=== PATIENT | male | born 2000 | race Caucasian/White ===

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

== ENCOUNTER 2019-03-15 20:55 | Emergency (ER) | payer OTHER, SELFPAY ==
[~2019-03-15] VITALS: Ht 170.2 cm; Wt 160.0 kg
[2019-03-15] MEDS ORDERED: PERCOCET 5MG/325MG TAB PO ONE (21:30)
--- NOTE | 2019-03-15 22:15 | REPVR ---
EXAM: CT Lumbar Spine Without Contrast EXAM DATE/TIME: 03/15/2019 9:33 PM CLINICAL HISTORY: 18 years old, male; Injury or trauma; Fall; Initial encounter; Blunt trauma (contusions or hematomas); Additional info: Fell/pain TECHNIQUE: Imaging protocol: Axial computed tomography images of the lumbar spine without intravenous contrast. Coronal and sagittal reformatted images were created and reviewed. Radiation optimization: All CT scans at this facility use at least one of these dose optimization techniques: automated exposure control; mA and/or kV adjustment per patient size (includes targeted exams where dose is matched to clinical indication); or iterative reconstruction. COMPARISON: No relevant prior studies available. FINDINGS: No segmental lumbar vertebral malalignment. Vertebral body height and morphology is maintained. No acute fracture or destructive process. Intervertebral disc height is maintained for age. Mild disc bulge lumbosacral junction. Broad-based No dilatation of the imaged distal abdominal aorta. No significant abnormality of the imaged retroperitoneum. IMPRESSION: No fracture or other acute abnormality involving the lumbar spine. Mild broad-based disc bulge at the lumbosacral junction Electronically signed by: Praveen Paredes On 03/15/2019 22:14:16 PM
--- NOTE | 2019-03-15 22:16 | REPVR ---
EXAM: CT Thoracic Spine Without Contrast EXAM DATE/TIME: 03/15/2019 9:33 PM CLINICAL HISTORY: 18 years old, male; Injury or trauma; Fall; Initial encounter; Blunt trauma (contusions or hematomas); Additional info: Fell/pain TECHNIQUE: Imaging protocol: Axial computed tomography images of the thoracic spine without intravenous contrast. Coronal and sagittal reformatted images were created and reviewed. Radiation optimization: All CT scans at this facility use at least one of these dose optimization techniques: automated exposure control; mA and/or kV adjustment per patient size (includes targeted exams where dose is matched to clinical indication); or iterative reconstruction. COMPARISON: No relevant prior studies available. FINDINGS: No segmental malalignment of the vertebral bodies. Vertebral body height is maintained. No fracture or destructive process. Intervertebral disc height is maintained, appropriate for age. No paraspinous soft tissue mass or focal soft tissue edema. IMPRESSION: No fracture or other acute abnormality involving the thoracic spine. Electronically signed by: Praveen Paredes On 03/15/2019 22:15:38 PM
[2019-03-15] MEDS ORDERED: IBUP80TA PO (22:37)
[2019-03-15] MEDS ORDERED: CYCL5TAB PO (22:37)
[2019-03-15 22:48] VITALS: BP 132/77
--- NOTE | 2019-03-16 08:42 | REP ---
REASON FOR EXAM: Pain after trauma. PRIORS: None. FINDINGS: No acute fracture or destructive osseous lesion. Electronically Signed by Ray Manzo DO 03/16/2019 08:45 A
--- NOTE | 2019-03-16 08:45 | REP ---
Pain after trauma. PRIORS: None. FINDINGS: Five views of the right and left ribs show no acute fracture or destructive osseous lesion. IMPRESSION: Negative ribs series. Electronically Signed by Ray Manzo DO 03/16/2019 08:48 A
--- NOTE | 2019-03-16 08:46 | REP ---
Pain after trauma. PRIORS: None. FINDINGS: No acute fracture or destructive osseous lesion. Electronically Signed by Ray Manzo DO 03/16/2019 08:48 A
--- NOTE | 2019-03-16 08:48 | REP ---
AP PELVIS AND RIGHT HIP: AP PELVIS: A single AP view of the pelvis was performed. The hip joint spaces are symmetric and relatively well maintained. There is no acute fracture or destructive osseous lesion. RIGHT HIP: The hip joint space is symmetric and relatively well maintained. There is no acute or destructive osseous lesion. Electronically Signed by Ray Manzo DO 03/16/2019 08:53 A
== END 2019-03-15 22:55 | disposition home or self-care (01) ==
LOC: M ED 20:55
DX: S39.012A Strain of muscle, fascia and tendon of lower back, initial encounter (principal); S76.011A Strain of muscle, fascia and tendon of right hip, initial encounter; S50.312A Abrasion of left elbow, initial encounter; S20.212A Contusion of left front wall of thorax, initial encounter; V00.138A Other skateboard accident, initial encounter; Y92.410 Unspecified street and highway as the place of occurrence of the external cause; Y93.51 Activity, roller skating (inline) and skateboarding; Y99.9 Unspecified external cause status; J45.909 Unspecified asthma, uncomplicated; F41.9 Anxiety disorder, unspecified; F32.9 Major depressive disorder, single episode, unspecified; Z72.0 Tobacco use; F12.10 Cannabis abuse, uncomplicated; Z88.5 Allergy status to narcotic agent

== ENCOUNTER 2019-07-02 16:28 | Emergency (ER) | payer SELFPAY ==
[~2019-07-02] VITALS: Ht 170.2 cm; Wt 70.5 kg
[2019-07-02 16:28] VITALS: BP 131/77
[~2019-07-02 16:28] MED LIST changes: +CYCL5TAB PO; +IBUP80TA PO; +TRAZ1TAB10 PO; -TRAZO50TA PO
== END 2019-07-02 19:40 | disposition left against medical advice (07) ==
LOC: M ED 16:28
DX: Z53.21 Procedure and treatment not carried out due to patient leaving prior to being seen by health care provider (principal)

== ENCOUNTER 2020-01-30 18:39 | Emergency (ER) | payer SELFPAY ==
[~2020-01-30] VITALS: Ht 170.2 cm; Wt 67.0 kg
[~2020-01-30 18:39] MED LIST changes: -AZIT500T2 PO; +AZIT500T5 PO
[2020-01-30 18:40] VITALS: BP 134/66
[2020-01-30] MEDS ORDERED: NS 1,000 ML IV ONE (19:00)
[2020-01-30 19:32] LABS: BASO # 0.1 10^3/uL (0.0-0.2); BASO % 0.7 % (0.0-1.0); EOS % 0.1 % (0.0-3.0); HEMATOCRIT 46.4 % (42.0-52.0); HEMOGLOBIN 16.2 g/dl (13.5-17.5); LYMPH # 2.7 10^3/uL (1.5-5.0); LYMPH % 32.1 % (24.0-44.0); MEAN CORPUSCULAR HEMOGLOBIN 30.7 pg (27.0-33.0); MEAN CORPUSCULAR HGB CONC 34.9 g/dl (32.0-36.5); MONO # 0.9 10^3/uL (0.0-0.8); MONO % 10.5 % (0.0-5.0); NEUTROPHILS # 4.8 10^3/uL (1.5-8.5); NEUTROPHILS % 56.6 % (36.0-66.0); PLATELET COUNT, AUTOMATED 359 10^3/uL (150-450); RED BLOOD COUNT 5.27 10^6/uL (4.30-6.10); WHITE BLOOD COUNT 8.5 10^3/uL (4.0-10.0)
[2020-01-30] MEDS ORDERED: ISOVUE-370 76% 100ML VIAL (Q9967) As Ordered ONE (19:32)
--- NOTE | 2020-01-30 19:50 | REPVR ---
PROCEDURE INFORMATION: Exam: CT Abdomen And Pelvis With Contrast Exam date and time: 01/30/2020 7:37 PM Age: 19 years old Clinical indication: Abdominal pain; Generalized; Additional info: Lower abdominal pain; R/O appy TECHNIQUE: Imaging protocol: Computed tomography of the abdomen and pelvis with intravenous contrast. Axial, coronal and sagittal reformatted images were created and reviewed. Radiation optimization: All CT scans at this facility use at least one of these dose optimization techniques: automated exposure control; mA and/or kV adjustment per patient size (includes targeted exams where dose is matched to clinical indication); or iterative reconstruction. Contrast material: ISOVUE 370; Contrast volume: 100 ml; Contrast route: IV; COMPARISON: CT ABD/PEL W/IV ORAL CONTRAS 03/20/2017 4:07 AM FINDINGS: Liver: Unremarkable. Gallbladder and bile ducts: No radiodense gallstones. No biliary ductal dilatation. Pancreas: Unremarkable. Spleen: Unremarkable. Adrenals: Unremarkable. Kidneys and ureters: No mass. No radiodense calculi. No hydronephrosis. Stomach and bowel: No bowel wall thickening. No obstruction. No pneumatosis. Appendix: Normal. Intraperitoneal space: No free fluid. No organized fluid collection. No free air. Vasculature: Unremarkable. No aneurysm. Lymph nodes: No pathologically enlarged lymph nodes. Bladder: Mild circumferential urinary bladder wall thickening, likely secondary to underdistention. Reproductive: Unremarkable. Bones/joints: No acute osseous abnormality. Soft tissues: Unremarkable. IMPRESSION: 1. Mild circumferential urinary bladder wall thickening, likely secondary to underdistention. Correlate with urinalysis to exclude cystitis. 2. Normal appendix. Electronically signed by: Geoff Lara On 01/30/2020 19:50:41 PM
[2020-01-30 19:56] LABS: ALBUMIN 4.5 GM/DL (3.2-5.2); BILIRUBIN,DIRECT 0.4 MG/DL (0.0-0.2); BILIRUBIN,TOTAL 1.6 MG/DL (0.2-1.0); TOTAL PROTEIN 8.1 GM/DL (6.4-8.2)
--- NOTE | 2020-01-30 20:49 | REPVR ---
PROCEDURE INFORMATION: Exam: US Abdomen Limited, Right Upper Quadrant Exam date and time: 01/30/2020 8:30 PM Age: 19 years old Clinical indication: Abdominal pain; Epigastric; Additional info: Abdominal pain; Elevated lipase; R/O stone/sludge TECHNIQUE: Imaging protocol: Real-time ultrasound of the abdomen with image documentation. Examination was focused on the right upper quadrant. COMPARISON: CT ABD/PEL W/IV CONTRAST ONLY 01/30/2020 7:28 PM FINDINGS: Liver: Unremarkable. Gallbladder: No gallstones. No gallbladder wall thickening or pericholecystic fluid. Negative sonographic Durham's sign, as per the performing java project manager. Common bile duct: No stones. No ductal dilatation. Pancreas: Unremarkable as visualized. Right kidney: No mass. No definite stones. No hydronephrosis. IMPRESSION: No acute sonographic findings. Electronically signed by: Geoff Lara On 01/30/2020 20:49:27 PM
== END 2020-01-30 21:37 | disposition home or self-care (01) ==
LOC: M ED 18:39
DX: K85.90 Acute pancreatitis without necrosis or infection, unspecified (principal); J45.909 Unspecified asthma, uncomplicated; F33.9 Major depressive disorder, recurrent, unspecified; F41.9 Anxiety disorder, unspecified; Z88.5 Allergy status to narcotic agent; F17.210 Nicotine dependence, cigarettes, uncomplicated
CPT/HCPCS: 74177; 76705; 80047; 80076; 81001; 83690; 85025; 96360; 99283; Q9967

== ENCOUNTER 2020-06-25 07:30 | Emergency (ER) | payer MEDICAID, SELFPAY ==
[~2020-06-25] VITALS: Ht 170.2 cm; Wt 63.3 kg
[2020-06-25] MEDS ORDERED: NS 1,000 ML IV ONE (08:15)
--- NOTE | 2020-06-25 08:45 | REPVR ---
PROCEDURE INFORMATION: Exam: XR Chest, 2 Views Exam date and time: 06/25/2020 7:42 AM Age: 19 years old Clinical indication: Chest pain; Additional info: Chest pain, SOB TECHNIQUE: Imaging protocol: XR of the chest Views: 2 views. COMPARISON: CR Ribs Bilat w-PA CHEST 03/15/2019 9:35 PM FINDINGS: Lungs: Unremarkable. No consolidation. Pleural space: Unremarkable. No pleural effusion. No pneumothorax. Heart/Mediastinum: Unremarkable. No cardiomegaly. Bones/joints: Unremarkable. IMPRESSION: No evidence for acute pulmonary disease. Electronically signed by: Geoff Negron On 06/25/2020 08:46:27 AM
[2020-06-25 09:13] LABS: ALBUMIN 3.7 GM/DL (3.2-5.2); ALT/SGPT 22 U/L (12-78); BILIRUBIN,DIRECT 0.3 MG/DL (0.0-0.2); BILIRUBIN,TOTAL 0.8 MG/DL (0.2-1.0); BLOOD UREA NITROGEN 9 MG/DL (7-18); CALCIUM LEVEL 8.8 MG/DL (8.5-10.1); CARBON DIOXIDE LEVEL 27 MEQ/L (21-32); CHLORIDE LEVEL 106 MEQ/L (98-107); CREATININE FOR GFR 0.96 MG/DL (0.70-1.30); GLUCOSE, FASTING 114 MG/DL (70-100); POTASSIUM SERUM 3.5 MEQ/L (3.5-5.1); SODIUM LEVEL 140 MEQ/L (136-145); TOTAL PROTEIN 6.6 GM/DL (6.4-8.2)
[2020-06-25 09:20] LABS: BASO % 0.6 % (0.0-1.0); EOS # 0.1 10^3/uL (0.0-0.5); EOS % 1.8 % (0.0-3.0); HEMATOCRIT 45.3 % (42.0-52.0); HEMOGLOBIN 15.6 g/dl (13.5-17.5); LYMPH # 3.6 10^3/uL (1.5-5.0); LYMPH % 54.3 % (24.0-44.0); MEAN CORPUSCULAR HEMOGLOBIN 30.1 pg (27.0-33.0); MEAN CORPUSCULAR HGB CONC 34.4 g/dl (32.0-36.5); MEAN CORPUSCULAR VOLUME 87.5 fl (80.0-96.0); MONO # 0.7 10^3/uL (0.0-0.8); MONO % 9.7 % (0.0-5.0); NEUTROPHILS # 2.2 10^3/uL (1.5-8.5); NEUTROPHILS % 33.3 % (36.0-66.0); PLATELET COUNT, AUTOMATED 266 10^3/uL (150-450); RED BLOOD COUNT 5.18 10^6/uL (4.30-6.10); WHITE BLOOD COUNT 6.7 10^3/uL (4.0-10.0)
[2020-06-25 09:58] LABS: ACETAMINOPHEN LEVEL < 2.0 UG/ML (10.0-30.0); ETHYL ALCOHOL (ETHANOL) < 0.003 % (0.000-0.010); SALICYLATE LEVEL 2.1 MG/DL (5.0-30.0)
[2020-06-25] MEDS ORDERED: COMBIVENT RESPIMAT 100-20MCG INHALER 4GM INH ONE (10:15)
[2020-06-25 10:49] LABS: AMPHETAMINES LEVEL URINE POSITIVE (NEGATIVE); BARBITURATES URINE NEGATIVE (NEGATIVE); BENZODIAZEPINES URINE NEGATIVE (NEGATIVE); CANNABINOIDS URINE POSITIVE (NEGATIVE); COCAINE METABOLITE URINE NEGATIVE (NEGATIVE); METHADONE URINE NEGATIVE (NEGATIVE); OPIATES URINE NEGATIVE (NEGATIVE); PHENCYCLIDINE URINE NEGATIVE (NEGATIVE)
[2020-06-25] MEDS ORDERED: VENTAER INH (11:22)
[2020-06-25 11:48] VITALS: BP 123/65
--- NOTE | 2020-07-13 15:27 | ECGEPIP ---
[facility] - ED Test Date: 2020-06-25 Pat Name: LEATHA LIMA Department: Room: - Gender: Male Associate Loan Officer: kenny : 2000 Requested By: CECI MALLORY PA-C. Order Number: [id number] Reading MD: Zenia Awan Measurements Intervals Universal Rate: 50 P: 56 [place]: 166 QRS: 89 QRSD: 113 T: 62 QT: 416 QTc: 383 Interpretive Statements SINUS BRADYCARDIA WITH SINUS ARRHYTHMIA MODERATE INTRAVENTRICULAR CONDUCTION DELAY BORDERLINE ECG PROB. EARLY REPOLORIZATION SEE SCANNED DOWNTIME REPORT
== END 2020-06-25 11:50 | disposition home or self-care (01) ==
LOC: M ED 07:30
DX: J98.01 Acute bronchospasm (principal); F41.9 Anxiety disorder, unspecified; F33.9 Major depressive disorder, recurrent, unspecified; F12.10 Cannabis abuse, uncomplicated; F17.210 Nicotine dependence, cigarettes, uncomplicated
CPT/HCPCS: 71046; 80048; 80076; 80307; 81001; 84443; 85025; 93005; 94640; 96360; 99284; G0480

== ENCOUNTER 2020-07-30 08:59 | Emergency (ER) | payer MEDICAID, SELFPAY ==
[~2020-07-30] VITALS: Ht 170.2 cm; Wt 65.0 kg
[~2020-07-30 08:59] MED LIST changes: +VENTAER INH
[2020-07-30 12:30] VITALS: BP 120/68
== END 2020-07-30 12:33 | disposition home or self-care (01) ==
LOC: M ED 08:59
DX: F15.10 Other stimulant abuse, uncomplicated (principal); Z91.5 Personal history of self-harm; Z88.6 Allergy status to analgesic agent

== ENCOUNTER 2020-11-13 02:35 | Emergency (ER) | payer MEDICAID ==
[~2020-11-13] VITALS: Ht 170.2 cm; Wt 64.2 kg
[2020-11-13 02:35] VITALS: BP 134/80
--- OUTSIDE RECORDS SUMMARY | 2020-11-13 02:45 | CCD ---
Author Author [facility] Organization [facility] Address Unknown Phone Unavailable Care Team Providers Care Drywall Hanger Helper Name Role Phone ChadwickJosselinNinfa FNP FRONT END WEB DESIGNER Unavailable Unavailable Re-disclosure Warning The records that you are about to access may contain information from federally-assisted alcohol or drug abuse programs. If such information is present, then the following federally mandated warning applies: This information has been disclosed to you from records protected by federal confidentiality rules (42 CFR part 2). The federal rules prohibit you from making any further disclosure of this information unless further disclosure is expressly permitted by the written consent of the person to whom it pertains or as otherwise permitted by 42 CFR part 2. A general authorization for the release of medical or other information is NOT sufficient for this purpose. The Federal rules restrict any use of the information to criminally investigate or prosecute any alcohol or drug abuse patient.The records that you are about to access may contain highly sensitive health information, the redisclosure of which is protected by Article 27-F of the [facility] Public Health law. If you continue you may have access to information: Regarding HIV / AIDS; Provided by facilities licensed or operated by the [facility] Office of Mental Health; or Provided by the [facility] Office for People With Developmental Disabilities. If such information is present, then the following [facility] mandated warning applies: This information has been disclosed to you from confidential records which are protected by state law. State law prohibits you from making any further disclosure of this information without the specific written consent of the person to whom it pertains, or as otherwise permitted by law. Any unauthorized further disclosure in violation of state law may result in a fine or prison sentence or both. A general authorization for the release of medical or other information is NOT sufficient authorization for further disc losure. Encounters Encounter Providers Location Date Indications Data Source(s ) Outpatient Attender: LUCIA Genao [facility] 04/07/2020 07:44:14 P M EDT [facility] Outpatient Attender: LUCIA Genao [facility] 09/20/2019 08:03:10 P M EST [facility] Insurance Providers Payer name Policy type / Coverage type Policy ID Covered green party ID Covered green party's relationship to villalpando Policy Villalpando Plan Information EMEDNY [id number] SP [id number] SELF PAY ONLY [id number] SP [id number] Medicaid P [id number] S [id number] [facility] [id number] SP [id number] 300 [facility] [id number] S [id number] MEDICAID [id number] SP [id number] MEDICAID M [id number] S [id number] Medicaid P [id number] S [id number] Medicaid Dental P [id number] S [id number] Medicaid Dental P [id number] S [id number] Medicaid Dental P [id number] S [id number] [facility] COMMUNITY PLAN [facility] [id number] SP [id number] [facility] COMMUNITY PLAN [facility] [id number] SP [id number] SELF PAY ONLY [id number] MEDICAID [id number] SP [id number] J CARLOS [id number] SP [id number] J CARLOS [id number] Patient [id number] MEDICAID (101) [id number] J CARLOS (192 [id number] BC/BS PPO/EPO (28) [id number]
--- OUTSIDE RECORDS SUMMARY | 2020-11-13 04:21 | CCD ---
Author Author [facility] Organization [facility] Address Unknown Phone Unavailable Care Team Providers Care Turning Machine Operator Name Role Phone ChadwickJosselinNinfa FNP SOCIAL MEDIA MARKETING SPECIALIST Unavailable Unavailable Re-disclosure Warning The records that [...] is protected by Article 27-F of the [facility] Public Health law. If you continue you may have access to information: Regarding HIV / AIDS; Provided by facilities licensed or operated by the [facility] Office of Mental Health; or Provided by the [facility] Office for People With Developmental Disabilities. If such information is present, then the following [facility] mandated warning applies: This information has been [...] law may result in a fine or long-term sentence or both. A general authorization for the release of medical or other information is NOT sufficient authorization for further disc losure. Encounters Encounter Providers Location Date Indications Data Source(s ) Outpatient Attender: LUCIA Genao [facility] 04/07/2020 07:44:14 P M EDT [facility] Outpatient Attender: LUCIA Genao [facility] 09/20/2019 08:03:10 P M EST [facility] Insurance Providers Payer name Policy type / Coverage type Policy ID Covered republican ID Covered republican's relationship to villalpando Policy Villalpando Plan Information EMEDNY [id number] SP [id number] SELF PAY ONLY [id number] SP [id number] Medicaid P [id number] S [id number] [facility] [id number] SP [id number] [address] [facility] [id number] S [id number] MEDICAID [id number] SP [id number] MEDICAID M [id number] S [id number] Medicaid P [id number] Medicaid Dental P [id number] S [id number] Medicaid Dental P [id number] S [id number] Medicaid Dental P [id number] S [id number] [facility] COMMUNITY PLAN [facility] [id number] SP [id number] [facility] COMMUNITY PLAN [facility] [id number] SP [id number] SELF PAY ONLY [id number] [id number] MEDICAID [id number] SP [id number] J CARLOS [id number] SP [id number] J CARLOS [id number] Patient [id number] MEDICAID (101) [id number] J CARLOS (192 [id number] BC/BS PPO/EPO (28) [id number]
== END 2020-11-13 04:14 | disposition left against medical advice (07) ==
LOC: M ED 02:35
DX: Z53.21 Procedure and treatment not carried out due to patient leaving prior to being seen by health care provider (principal)

== ENCOUNTER 2021-11-18 01:42 | Emergency (ER) | payer MEDICAID, OTHER ==
[~2021-11-18] VITALS: Ht 170.2 cm; Wt 65.9 kg
[2021-11-18] MEDS ORDERED: MORPHINE 2 MG/ML 1ML VIAL (J2270) IV ONE (02:15)
[2021-11-18 03:00] LABS: BASO # 0.1 10^3/uL (0.0-0.2); BASO % 0.5 % (0.0-1.0); EOS % 0.2 % (0.0-3.0); HEMATOCRIT 46.3 % (42.0-52.0); HEMOGLOBIN 15.4 g/dl (13.5-17.5); LYMPH # 1.7 10^3/uL (1.5-5.0); LYMPH % 11.3 % (24.0-44.0); MEAN CORPUSCULAR HEMOGLOBIN 28.8 pg (27.0-33.0); MEAN CORPUSCULAR HGB CONC 33.3 g/dl (32.0-36.5); MEAN CORPUSCULAR VOLUME 86.7 fl (80.0-96.0); MONO # 1.3 10^3/uL (0.0-0.8); MONO % 8.1 % (2.0-8.0); NEUTROPHILS # 12.2 10^3/uL (1.5-8.5); NEUTROPHILS % 79.4 % (36.0-66.0); PLATELET COUNT, AUTOMATED 327 10^3/uL (150-450); RED BLOOD COUNT 5.34 10^6/uL (4.30-6.10); WHITE BLOOD COUNT 15.4 10^3/uL (4.0-10.0)
[2021-11-18 03:18] LABS: AMPHETAMINES LEVEL URINE POSITIVE (NEGATIVE); BARBITURATES URINE NEGATIVE (NEGATIVE); BENZODIAZEPINES URINE NEGATIVE (NEGATIVE); CANNABINOIDS URINE POSITIVE (NEGATIVE); COCAINE METABOLITE URINE NEGATIVE (NEGATIVE); METHADONE URINE NEGATIVE (NEGATIVE); OPIATES URINE NEGATIVE (NEGATIVE); PHENCYCLIDINE URINE NEGATIVE (NEGATIVE)
[2021-11-18 03:20] VITALS: BP 131/75
[2021-11-18 03:33] LABS: ALBUMIN 3.8 GM/DL (3.2-5.2); ALT/SGPT 178 U/L (12-78); BILIRUBIN,TOTAL 0.4 MG/DL (0.2-1.0); BLOOD UREA NITROGEN 19 MG/DL (7-18); CALCIUM LEVEL 9.2 MG/DL (8.5-10.1); CARBON DIOXIDE LEVEL 29 MEQ/L (21-32); CHLORIDE LEVEL 105 MEQ/L (98-107); CREATININE FOR GFR 0.83 MG/DL (0.70-1.30); ETHYL ALCOHOL (ETHANOL) < 0.003 % (0.000-0.010); GLOMERULAR FILTRATION RATE > 60.0 (>60); GLUCOSE, FASTING 101 MG/DL (70-100); LIPASE 69 U/L (73-393); MAGNESIUM LEVEL 2.2 MG/DL (1.8-2.4); POTASSIUM SERUM 4.3 MEQ/L (3.5-5.1); SODIUM LEVEL 139 MEQ/L (136-145); TOTAL PROTEIN 7.4 GM/DL (6.4-8.2)
[2021-11-18] MEDS ORDERED: NORCO 5/325MG TABLET (BULK FOR ED) PO ONE (03:40)
== END 2021-11-18 04:55 | disposition home or self-care (01) ==
LOC: M ED 01:42
DX: S52.571A Other intraarticular fracture of lower end of right radius, initial encounter for closed fracture (principal); S62.001A Unspecified fracture of navicular [scaphoid] bone of right wrist, initial encounter for closed fracture; V13.4XXA Pedal cycle driver injured in collision with car, pick-up truck or van in traffic accident, initial encounter; Y92.410 Unspecified street and highway as the place of occurrence of the external cause; Z88.5 Allergy status to narcotic agent; F17.210 Nicotine dependence, cigarettes, uncomplicated; F12.20 Cannabis dependence, uncomplicated
CPT/HCPCS: 71045; 72128; 73080; 73090; 73110; 73130; 73552; 74176; 80053; 80307; 82077; 83690; 83735; 85025; 96374; 99283; J2270

== ENCOUNTER 2022-05-05 11:04 | Emergency (ER) | payer OTHER ==
[~2022-05-05] VITALS: Ht 170.2 cm; Wt 65.3 kg
[2022-05-05] MEDS ORDERED: LIDOCAINE 1% MDV 20ML VIAL SC ONE (12:10)
[2022-05-05] MEDS ORDERED: LIDOCAINE VISCOUS 2% SOLN 15ML UDC SSP ONE (13:30)
[2022-05-05] MEDS ORDERED: BACITRACIN OINTMENT 30GM TUBE TOP ONE (13:35)
[2022-05-05] MEDS ORDERED: BOOSTRIX/ADACEL VACCINE (DIPHTH/PERTUSS/ACELL/TETANUS) 0.5ML SYR IM ONE (13:35)
[2022-05-05] MEDS ORDERED: ACETAMINOPHEN 500 MG TAB PO ONE (13:35)
[2022-05-05] MEDS ORDERED: AUGMENTIN 875 MG TAB PO ONE (13:35)
[2022-05-05] MEDS ORDERED: AMOX875T2 PO (14:12)
[2022-05-05 14:34] VITALS: BP 136/80
== END 2022-05-05 14:34 | disposition home or self-care (01) ==
LOC: M ED 11:04
DX: K02.9 Dental caries, unspecified (principal); K04.7 Periapical abscess without sinus; S51.812A Laceration without foreign body of left forearm, initial encounter; W26.0XXA Contact with knife, initial encounter; Y92.89 Other specified places as the place of occurrence of the external cause; F15.20 Other stimulant dependence, uncomplicated; Z87.19 Personal history of other diseases of the digestive system; Z88.5 Allergy status to narcotic agent

== ENCOUNTER 2022-07-12 20:27 | Emergency (ER) | payer OTHER ==
[~2022-07-12] VITALS: Ht 170.2 cm; Wt 61.4 kg
[~2022-07-12 20:27] MED LIST changes: +AMOX875T2 PO
[2022-07-12 21:27] LABS: HEMATOCRIT 50.3 % (42.0-52.0); HEMOGLOBIN 16.4 g/dl (13.5-17.5); MEAN CORPUSCULAR HEMOGLOBIN 28.6 pg (27.0-33.0); MEAN CORPUSCULAR HGB CONC 32.6 g/dl (32.0-36.5); MEAN CORPUSCULAR VOLUME 87.6 fl (80.0-96.0); PLATELET COUNT, AUTOMATED 389 10^3/uL (150-450); RED BLOOD COUNT 5.74 10^6/uL (4.30-6.10); WHITE BLOOD COUNT 8.6 10^3/uL (4.0-10.0)
[2022-07-12 21:48] LABS: AMPHETAMINES LEVEL URINE POSITIVE (NEGATIVE); BARBITURATES URINE NEGATIVE (NEGATIVE); BENZODIAZEPINES URINE NEGATIVE (NEGATIVE); CANNABINOIDS URINE POSITIVE (NEGATIVE); COCAINE METABOLITE URINE NEGATIVE (NEGATIVE); METHADONE URINE NEGATIVE (NEGATIVE); OPIATES URINE NEGATIVE (NEGATIVE); PHENCYCLIDINE URINE NEGATIVE (NEGATIVE)
[2022-07-12 22:01] LABS: ACETAMINOPHEN LEVEL < 2.0 UG/ML (10.0-30.0); ALBUMIN 4.3 GM/DL (3.2-5.2); ALT/SGPT 29 U/L (12-78); BILIRUBIN,DIRECT 0.3 MG/DL (0.0-0.2); BLOOD UREA NITROGEN 12 MG/DL (7-18); CALCIUM LEVEL 9.7 MG/DL (8.5-10.1); CARBON DIOXIDE LEVEL 28 MEQ/L (21-32); CHLORIDE LEVEL 105 MEQ/L (98-107); CREATININE FOR GFR 0.88 MG/DL (0.70-1.30); ETHYL ALCOHOL (ETHANOL) < 0.003 % (0.000-0.010); GLOMERULAR FILTRATION RATE > 60.0 (>60); GLUCOSE, FASTING 77 MG/DL (70-100); POTASSIUM SERUM 4.1 MEQ/L (3.5-5.1); SALICYLATE LEVEL 1.7 MG/DL (5.0-30.0); SODIUM LEVEL 137 MEQ/L (136-145); TOTAL PROTEIN 8.3 GM/DL (6.4-8.2)
[2022-07-12 22:22] LABS: RSV AMPLIFICATION NEGATIVE (NEGATIVE)
[2022-07-12] MEDS ORDERED: HOME MED LIST COMPLETE! XX SCH (23:20)
[2022-07-13 00:05] VITALS: BP 138/63
== END 2022-07-13 00:07 | disposition home or self-care (01) ==
LOC: M ED 20:27
DX: Z04.6 Encounter for general psychiatric examination, requested by authority (principal); J45.909 Unspecified asthma, uncomplicated; Z88.5 Allergy status to narcotic agent

== ENCOUNTER 2023-08-02 18:36 | Inpatient (IN) | payer MEDICAID, OTHER ==
[~2023-08-02] VITALS: Ht 170.2 cm; Wt 59.1 kg
[2023-08-02 19:42] LABS: HEMATOCRIT 43.9 % (42.0-52.0); HEMOGLOBIN 14.5 g/dl (13.5-17.5); MEAN CORPUSCULAR HEMOGLOBIN 28.3 pg (27.0-33.0); MEAN CORPUSCULAR VOLUME 85.7 fl (80.0-96.0); PLATELET COUNT, AUTOMATED 357 10^3/uL (150-450); RED BLOOD COUNT 5.12 10^6/uL (4.30-6.10)
[2023-08-02 19:52] LABS: BARBITURATES URINE NEGATIVE (NEGATIVE); METHADONE URINE NEGATIVE (NEGATIVE); OPIATES URINE NEGATIVE (NEGATIVE); PHENCYCLIDINE URINE NEGATIVE (NEGATIVE)
[2023-08-02 19:53] LABS: BENZODIAZEPINES URINE NEGATIVE (NEGATIVE)
[2023-08-02 19:53] LABS: ETHYL ALCOHOL (ETHANOL) < 0.003 % (0.000-0.010)
[2023-08-02 19:54] LABS: AMPHETAMINES LEVEL URINE POSITIVE (NEGATIVE); CANNABINOIDS URINE POSITIVE (NEGATIVE); COCAINE METABOLITE URINE POSITIVE (NEGATIVE)
[2023-08-02 19:54] LABS: ACETAMINOPHEN LEVEL < 2.0 UG/ML (10.0-20.0); SALICYLATE LEVEL < 3.0 MG/DL (<30)
[2023-08-02 19:55] LABS: ALBUMIN 3.7 G/DL (3.2-5.2); ALKALINE PHOSPHATASE 111 U/L (46-116); ALT/SGPT 19 U/L (7.0-40); AST/SGOT 13 U/L (<34); BILIRUBIN,DIRECT 0.2 MG/DL (<0.4); BILIRUBIN,TOTAL 0.4 MG/DL (0.3-1.2); BLOOD UREA NITROGEN 14 MG/DL (9-23); CALCIUM LEVEL 9.4 MG/DL (8.5-10.1); CARBON DIOXIDE LEVEL 30 MMOL/L (20-31); CHLORIDE LEVEL 107 MMOL/L (98-107); CREATININE FOR GFR 0.81 MG/DL (0.70-1.30); GLOMERULAR FILTRATION RATE > 60.0 (>60); GLUCOSE, FASTING 161 MG/DL (60-100); SODIUM LEVEL 140 MMOL/L (136-145)
[2023-08-02 19:58] LABS: THYROID STIMULATING HORMONE 1.724 uIU/ML (0.55-4.78)
[2023-08-02] MEDS ORDERED: MED REC CURRENTLY UNOBTAINABLE XX SCH (23:05)
[2023-08-02] MEDS ORDERED: LIDOCAINE W/EPINEPHRINE 1% 20ML VIAL SC ONE (23:05)
[2023-08-03] MEDS ORDERED: CEPHALEXIN 500 MG CAP PO ONE (00:15)
[2023-08-03] MEDS ORDERED: IBUPROFEN 600MG TAB PO ONE (02:20)
[2023-08-03] MEDS ORDERED: MED REC IN PROGRESS XX SCH (09:20)
[2023-08-03] MEDS ORDERED: MAALOX 30 ML SUSP *UDC PO PRN (14:15)
[2023-08-03] MEDS ORDERED: MOM 30ML SUSPENSION UDC PO PRN (14:15)
[2023-08-03] MEDS ORDERED: diphenhydrAMINE 25MG CAP PO PRN (14:15)
[2023-08-03] MEDS ORDERED: ACETAMINOPHEN TAB 650MG DOSE (2X325MG) PO PRN (14:15)
[2023-08-03 17:30] VITALS: BP 153/75; TEMP 97.2; O2SAT 100
[2023-08-03] MEDS: IBUPROFEN 400MG TAB PO PRN (18:10)
[2023-08-03] MEDS: traZODone 50 MG TAB PO PRN (20:35)
[2023-08-04 07:06] VITALS: BP 128/65; TEMP 97.2; O2SAT 99
[2023-08-04] MEDS ORDERED: IBUPROFEN 400MG TAB PO ONE (12:15)
[2023-08-04] MEDS ORDERED: OLANZapine ORAL DISINTEGRATING TAB 5MG PO PRN (13:25)
[2023-08-04] MEDS ORDERED: hydrOXYzine 50 MG TAB PO PRN (13:25)
[2023-08-04] MEDS: IBUPROFEN 400MG TAB PO PRN (13:30)
[2023-08-04] MEDS ORDERED: IBUPROFEN 600MG TAB PO PRN (13:45)
[2023-08-04 18:57] VITALS: BP 134/65; TEMP 98
[2023-08-04] MEDS: traZODone 50 MG TAB PO PRN (20:56)
[2023-08-04] MEDS ORDERED: SERTRALINE HCL 25 MG TABLET PO ONE (21:00)
[2023-08-05 06:12] VITALS: BP 119/62; TEMP 97.9; O2SAT 99
[2023-08-05 18:23] VITALS: BP 117/58; TEMP 97.8; O2SAT 98
[2023-08-05] MEDS: SERTRALINE HCL 50 MG TAB PO SCH (20:14)
[2023-08-05] MEDS: traZODone 50 MG TAB PO PRN (20:14)
[2023-08-06 06:27] VITALS: BP 121/60; TEMP 98.3; O2SAT 99
[2023-08-06] MEDS: NICOTINE 21MG/24HR 1 EA TRANSDERMAL TD PRN (18:34)
[2023-08-06 18:37] VITALS: BP 122/81; TEMP 98.6; O2SAT 99
[2023-08-06] MEDS: traZODone 50 MG TAB PO PRN (20:18)
[2023-08-06] MEDS: SERTRALINE HCL 50 MG TAB PO SCH (20:18)
[2023-08-07 06:40] VITALS: BP 106/64; TEMP 98.6; O2SAT 99
[2023-08-07] MEDS: NICOTINE 21MG/24HR 1 EA TRANSDERMAL TD PRN (14:13)
[2023-08-07 18:19] VITALS: BP 112/59; TEMP 97.9; O2SAT 96
[2023-08-07] MEDS: traZODone 50 MG TAB PO PRN (20:16)
[2023-08-07] MEDS: SERTRALINE HCL 50 MG TAB PO SCH (20:16)
[2023-08-08 06:47] VITALS: BP 115/57; TEMP 97.1; O2SAT 98
[2023-08-08] MEDS ORDERED: SERT50TA29 PO (07:02)
[2023-08-08] MEDS ORDERED: NICO21PAT TD (07:02)
== END 2023-08-08 11:00 | disposition home or self-care (01) | DRG 754 ==
LOC: M ED 18:36 → M PSY 08-03 14:11
PROVIDERS: ADMIT Student in an Organized Health Care Education/Training Program; ATTEND Student in an Organized Health Care Education/Training Program
DX: F32.A Depression, unspecified (principal); F17.210 Nicotine dependence, cigarettes, uncomplicated; S41.112A Laceration without foreign body of left upper arm, initial encounter; X78.9XXA Intentional self-harm by unspecified sharp object, initial encounter; Y92.9 Unspecified place or not applicable; Z91.52 Personal history of nonsuicidal self-harm; S01.511A Laceration without foreign body of lip, initial encounter; Y04.2XXA Assault by strike against or bumped into by another person, initial encounter; Z63.0 Problems in relationship with spouse or partner; Z88.5 Allergy status to narcotic agent; F19.90 Other psychoactive substance use, unspecified, uncomplicated

== ENCOUNTER 2024-03-16 17:24 | Inpatient (IN) | payer MEDICAID, OTHER ==
[~2024-03-16] VITALS: Ht 177.8 cm; Wt 72.7 kg
[~2024-03-16 17:24] MED LIST changes: +NICO21PAT TD; +SERT50TA29 PO
[2024-03-16 18:17] LABS: HEMATOCRIT 43.2 % (42.0-52.0); HEMOGLOBIN 14.3 g/dl (13.5-17.5); MEAN CORPUSCULAR HEMOGLOBIN 28.3 pg (27.0-33.0); MEAN CORPUSCULAR HGB CONC 33.1 g/dl (32.0-36.5); MEAN CORPUSCULAR VOLUME 85.4 fl (80.0-96.0); PLATELET COUNT, AUTOMATED 340 10^3/uL (150-450); RED BLOOD COUNT 5.06 10^6/uL (4.30-6.10); WHITE BLOOD COUNT 5.2 10^3/uL (4.0-10.0)
[2024-03-16 18:39] LABS: BARBITURATES URINE NEGATIVE (NEGATIVE)
[2024-03-16 18:40] LABS: BENZODIAZEPINES URINE NEGATIVE (NEGATIVE); METHADONE URINE NEGATIVE (NEGATIVE); OPIATES URINE NEGATIVE (NEGATIVE); PHENCYCLIDINE URINE NEGATIVE (NEGATIVE)
[2024-03-16 18:41] LABS: ETHYL ALCOHOL (ETHANOL) < 0.003 % (0.000-0.010)
[2024-03-16 18:42] LABS: ALBUMIN 3.6 G/DL (3.2-5.2); ALKALINE PHOSPHATASE 114 U/L (46-116); ALT/SGPT 37 U/L (7.0-40); AMPHETAMINES LEVEL URINE POSITIVE (NEGATIVE); AST/SGOT 18 U/L (<34); BILIRUBIN,DIRECT 0.5 MG/DL (<0.4); BILIRUBIN,TOTAL 1.2 MG/DL (0.3-1.2); BLOOD UREA NITROGEN 19 MG/DL (9-23); CANNABINOIDS URINE POSITIVE (NEGATIVE); CARBON DIOXIDE LEVEL 24 MMOL/L (20-31); CHLORIDE LEVEL 110 MMOL/L (98-107); COCAINE METABOLITE URINE POSITIVE (NEGATIVE); CREATININE FOR GFR 0.88 MG/DL (0.70-1.30); GLOMERULAR FILTRATION RATE > 60.0 (>60); GLUCOSE, FASTING 91 MG/DL (60-100); POTASSIUM SERUM 3.5 MMOL/L (3.5-5.1); SALICYLATE LEVEL < 3.0 MG/DL (<30); SODIUM LEVEL 141 MMOL/L (136-145); TOTAL PROTEIN 6.9 G/DL (5.7-8.2)
[2024-03-16 18:46] LABS: THYROID STIMULATING HORMONE 2.186 uIU/ML (0.55-4.78)
[2024-03-16] MEDS ORDERED: SERT-141 PO (19:33)
[2024-03-16] MEDS ORDERED: NICO1DIS12 TD (19:33)
[2024-03-16] MEDS ORDERED: HOME MED LIST COMPLETE! XX SCH (19:35)
[2024-03-16] MEDS: NICOTINE 21MG/24HR 1 EA TRANSDERMAL TD ONE (21:05)
[2024-03-18] MEDS ORDERED: ACETAMINOPHEN TAB 650MG DOSE (2X325MG) PO PRN (11:05)
[2024-03-18] MEDS ORDERED: MOM 30ML SUSPENSION UDC PO PRN (11:05)
[2024-03-18] MEDS ORDERED: MAALOX 30 ML SUSP *UDC PO PRN (11:05)
[2024-03-18] MEDS ORDERED: IBUPROFEN 400MG TAB PO PRN (11:05)
[2024-03-18 12:17] VITALS: BP 110/59; TEMP 97.1; O2SAT 100
[2024-03-18] MEDS: NICOTINE 21MG/24HR 1 EA TRANSDERMAL TD SCH (16:45)
[2024-03-18 18:00] VITALS: BP 119/81; TEMP 96.7
[2024-03-18] MEDS: traZODone 50 MG TAB PO PRN (21:04)
[2024-03-18] MEDS: diphenhydrAMINE 25MG CAP PO PRN (23:26)
[2024-03-19 06:29] VITALS: BP 133/64; TEMP 98; O2SAT 97
[2024-03-19 18:41] VITALS: BP 115/68; TEMP 97.2
[2024-03-20 06:20] VITALS: BP 139/66; TEMP 97.9; O2SAT 100
[2024-03-20 18:36] VITALS: BP 134/83; TEMP 97.5
[2024-03-21 05:58] VITALS: BP 128/58; TEMP 97.8; O2SAT 100
== END 2024-03-21 10:21 | disposition home or self-care (01) | DRG 754 ==
LOC: M ED 17:24 → M ED INP 03-18 11:04 → M PSY 03-18 12:20
PROVIDERS: ADMIT Student in an Organized Health Care Education/Training Program; ATTEND Student in an Organized Health Care Education/Training Program
DX: F32.A Depression, unspecified (principal); F14.10 Cocaine abuse, uncomplicated; F17.210 Nicotine dependence, cigarettes, uncomplicated; F15.10 Other stimulant abuse, uncomplicated; Z63.0 Problems in relationship with spouse or partner; Z88.5 Allergy status to narcotic agent; Z79.899 Other long term (current) drug therapy; Z62.810 Personal history of physical and sexual abuse in childhood; Z62.811 Personal history of psychological abuse in childhood

== ENCOUNTER 2024-04-23 20:40 | Emergency (ER) | payer MEDICAID, OTHER ==
[~2024-04-23] VITALS: Ht 172.7 cm; Wt 66.0 kg
[2024-04-23 20:40] VITALS: BP 119/63; TEMP 97.6; O2SAT 97
[~2024-04-23 20:40] MED LIST changes: +NICO1DIS12 TD; +SERT-141 PO
[2024-04-23 21:13] LABS: BASO # 0.1 10^3/uL (0.0-0.2); BASO % 0.5 % (0.0-1.0); EOS # 0.1 10^3/uL (0.0-0.5); EOS % 1.1 % (0.0-3.0); HEMATOCRIT 41.4 % (42.0-52.0); HEMOGLOBIN 14.5 g/dl (13.5-17.5); LYMPH # 2.3 10^3/uL (1.5-5.0); LYMPH % 21.6 % (24.0-44.0); MEAN CORPUSCULAR HEMOGLOBIN 28.9 pg (27.0-33.0); MEAN CORPUSCULAR VOLUME 82.6 fl (80.0-96.0); MONO # 1.3 10^3/uL (0.0-0.8); NEUTROPHILS # 6.8 10^3/uL (1.5-8.5); NEUTROPHILS % 64.6 % (36.0-66.0); PLATELET COUNT, AUTOMATED 335 10^3/uL (150-450); RED BLOOD COUNT 5.01 10^6/uL (4.30-6.10); WHITE BLOOD COUNT 10.5 10^3/uL (4.0-10.0)
[2024-04-23 21:46] LABS: ALBUMIN 3.7 G/DL (3.2-5.2); ALKALINE PHOSPHATASE 109 U/L (46-116); ALT/SGPT 31 U/L (7.0-40); AST/SGOT 25 U/L (<34); BLOOD UREA NITROGEN 10 MG/DL (9-23); CALCIUM LEVEL 9.1 MG/DL (8.5-10.1); CARBON DIOXIDE LEVEL 25 MMOL/L (20-31); CHLORIDE LEVEL 109 MMOL/L (98-107); CREATININE FOR GFR 0.76 MG/DL (0.70-1.30); GLOMERULAR FILTRATION RATE > 60.0 (>60); GLUCOSE, FASTING 119 MG/DL (60-100); SODIUM LEVEL 140 MMOL/L (136-145); TOTAL PROTEIN 7.1 G/DL (5.7-8.2)
== END 2024-04-23 22:27 | disposition left against medical advice (07) ==
LOC: M ED 20:40
DX: Z53.21 Procedure and treatment not carried out due to patient leaving prior to being seen by health care provider (principal)